=== PATIENT | male | born 1995 | race Caucasian/White ===

== ENCOUNTER 2023-12-12 12:05 | Outpatient (AMB) | payer OTHER, SELFPAY ==
--- NOTE | 2023-12-12 12:05 | AM.OFFWIN_ITS ---
Intake Vital Signs 12/12/23 12:06 Height 6 ft Weight 159 lb BMI 21.6 BP 130/70 Blood Pressure Location Lt brachial Position Sitting Pulse 81 Pulse Source Pulse Oximeter Temp 97.6 F Temp Source Temporal Artery Scan Pulse Oximetry (%) 98 Oxygen Delivery Method Room Air Intake Visit Reasons: MUSEUM ASSISTANT congestion Intake Note: pt is here today for congestion started today Patient Tobacco Use Status: Former Tobacco user Allergies codeine Allergy (Mild, Verified 12/12/23 12:09) Unknown Do you need a note to return to daycare/school/sports/work: Yes HPI MUSEUM ASSISTANT congestion HPI Details This is a 28 year old male patient who presents to the [place] clinic today for recent upper respiratory cough/congestion. He states he recently quit smoking, and is taking Chantix, which is going well. He reports that in the past, when he has quit smoking, he coughs/has more mucus production than usual for the first 1-2 weeks. He is in the [employer] and has the potential to be chosen for a running drill/assessment on Sunday. He would like to avoid this if possible. He denies any other upper respiratory symptoms, fever, or shortness of breath. Denies need for viral testing. [facility] Social History Patient Tobacco Use Status: Former Tobacco user Review of Systems Const All systems reviewed & are unremarkable except as noted in HPI and below Physical Exam Const General: cooperative, healthy appearing and no acute distress Nutritional Appearance: average body habitus HEENT Head: Yes normal to inspection Resp Effort & Inspection: normal respiratory effort and Actively coughing Quality: productive Auscultation: clear to auscultation bilaterally Cardio Rate: regular rate Rhythm: regular rhythm Extrem General: Yes no clubbing, cyanosis or edema Psych Appearance: grossly normal Mental Status: mental status grossly normal Speech and movement: Normal speech and movement present Assessment & Plan Assessment & Plan (1) Cough in adult: Code(s): R05.9 - Cough, unspecified Plan: Patient has productive cough which he reports is common for him following quitting smoking. I commended his efforts to quit and he is reportedly doing well on Chantix. I provided him with a note today excusing him from physical testing/running at work this week. He declines need for any cough medicine or viral testing. He is going to start using otc Mucinex to see if this helps. All questions were answered and patient can return to [place] clinic as needed. (2) Recently quit using tobacco: Code(s): Z87.891 - Personal history of nicotine dependence Plan: Doing well on Chantix. Coding Level of Care Code Est Pt Level 3 (81128) Diagnoses Cough in adult R05.9 Recently quit using tobacco Z87.891
[2023-12-12 12:06] VITALS: BP 130/70; PULSE 81; TEMP 36.4; O2SAT 98; BMI 21.6
== END 2023-12-12 12:36 | disposition home or self-care (01) ==
PROVIDERS: Visit Provider Nurse Practitioner Family
DX: R05.9 Cough, unspecified (principal); Z87.891 Personal history of nicotine dependence
CPT/HCPCS: 99213

== ENCOUNTER 2024-05-20 09:38 | Outpatient (AMB) | payer OTHER, SELFPAY ==
--- NOTE | 2024-05-20 09:55 | MHC.OFFWIV ---
Intake Vital Signs 05/20/24 09:57 Height 6 ft Weight 154 lb BMI 20.9 BP 150/100 H Blood Pressure Location Lt brachial Position Sitting Pulse 70 Pulse Source Pulse Oximeter Pulse Oximetry (%) 98 Oxygen Delivery Method Room Air Intake Visit Reasons: EP-hemorroid pain Intake Note: Patient here for hemorrhoid pain that has been present for about 3 days. Patient Tobacco Use Status: Former Tobacco user Allergies codeine Allergy (Mild, Verified 05/20/24 09:57) Unknown Do you need a note to return to daycare/school/sports/work: Yes HPI HPI Comments History of Present Illness Details Patient is a 28-year-old male complaining of weeks of hemorrhoid pain. He tells me he has tried applying some kind of ointment to the area but he does not know what it is called. It has given him no relief. He states he can feel a bump near the opening of his anus and sometimes there is blood on the toilet paper but it is extremely painful for him. He states it is worse when he tries to walk or sit, it is better when he just staying still standing. [facility] Social History Patient Tobacco Use Status: Former Tobacco user Review of Systems Const All systems reviewed & are unremarkable except as noted in HPI and below Physical Exam Vital Signs: Last Vital Signs Pulse 70 05/20/24 09:57 BP 150/100 H 05/20/24 09:57 Pulse Ox 98 05/20/24 09:57 Oxygen Delivery Method Room Air 05/20/24 09:57 BMI result Body Mass Index 20.9 Const General: cooperative, healthy appearing, comfortable, no acute distress and well developed Orientation/consciousness: patient oriented x3 Limitations: no limitations HEENT Head: Yes normal to inspection Neck Neck: Yes normal visual inspection and Yes supple GI Other: Declined exam Neuro General: patient oriented x3 Assessment & Plan Assessment & Plan (1) External hemorrhoid: Code(s): K64.4 - Residual hemorrhoidal skin tags Plan: Recommended hydrocortisone cream twice a day and refrigerated Tucks pads. Provided patient with handout from up-to-date for education. Plan See above Coding Level of Care Code New Pt Level 3 (96651) Diagnoses External hemorrhoid K64.4
[2024-05-20 09:57] VITALS: BP 150/100; PULSE 70; O2SAT 98; BMI 20.9
== END 2024-05-20 10:16 | disposition home or self-care (01) ==
PROVIDERS: Visit Provider Physician Assistant
DX: K64.4 Residual hemorrhoidal skin tags (principal)

== ENCOUNTER → 2024-05-20 09:38 | Outpatient (BNVA) | payer OTHER, SELFPAY | DX: K64.4 Residual hemorrhoidal skin tags (principal) | CPT/HCPCS: 99202 ==